=== PATIENT | female | born 1995 | race Caucasian/White ===

== ENCOUNTER 2024-04-17 20:09 | Emergency (ER) | payer OTHER ==
[~2024-04-17] VITALS: Ht 157.5 cm; Wt 73.4 kg
[2024-04-17 20:26] VITALS: BP 120/70; PULSE 65; RESP 18; TEMP 98.1; O2SAT 100
[2024-04-17] MEDS ORDERED: ONDANSETRON 4MG ODT PO ONE (21:30)
[2024-04-17 21:33] LABS: CLARITY URINE CLOUDY (CLEAR); COLOR URINE DARK YELLOW (YELLOW); GLUCOSE URINE NEGATIVE (NEGATIVE); KETONES URINE NEGATIVE (NEGATIVE); LEUKOCYTE ESTERASE URINE 1+ (NEGATIVE); NITRITE URINE NEGATIVE (NEGATIVE); OCCULT BLOOD URINE NEGATIVE (NEGATIVE); PH URINE 5.5 (4.5-8.0); PROTEIN URINE TRACE (NEGATIVE); SPECIFIC GRAVITY URINE 1.032 (1.005-1.030)
[2024-04-17 21:50] LABS: BACTERIA URINE 2+; RBC URINE 0-2 /hpf (0-2); SQUAMOUS EPITHELIAL CELL URINE 2+ /lpf (RARE/1+)
[2024-04-17 23:13] LABS: HEMATOCRIT. 37.2 % (36.0-48.0); HEMOGLOBIN. 12.7 g/dL (12.0-16.0); MEAN CORPUSCULAR HEMOGLOBIN 27.8 pg (28.0-32.0); MEAN CORPUSCULAR HGB CONC 34.2 g/dL (31.0-37.0); MEAN CORPUSCULAR VOLUME 81.4 fL (81.0-99.0); MEAN PLATELET VOLUME 7.4 fl (7.4-10.4); PLATELET 330 x1000/uL (130-400); RED BLOOD CELL COUNT 4.57 mill/uL (4.2-5.4); RED CELL DISTRIBUTION WIDTH 15.1 % (11.6-14.6); WHITE BLOOD COUNT 6.6 x1000/uL (4.5-11.0)
[2024-04-17 23:14] LABS: DIFFERENTIAL COMMENT 1
[2024-04-17 23:18] LABS: CHLORIDE 105 mEq/L (98-107); POTASSIUM 3.4 mEq/L (3.5-5.1); SODIUM 136 mEq/L (136-145)
[2024-04-17 23:19] LABS: CARBON DIOXIDE 24 mEq/L (21-32)
[2024-04-17 23:20] LABS: CALCIUM 8.6 mg/dL (8.7-10.4)
[2024-04-17 23:22] LABS: PLATELET ESTIMATE NORMAL
[2024-04-17 23:24] LABS: CREATININE 0.5 mg/dL (0.6-1.0); GLUCOSE 87 mg/dL (70-105)
[2024-04-17 23:25] LABS: UREA NITROGEN BLOOD 7 mg/dL (9-23)
[2024-04-17 23:26] LABS: ALANINE AMINOTRANSFERASE 16 IU/L (10-49); ALBUMIN 3.8 g/dL (3.2-4.8); ASPARTATE AMINOTRANSFERASE 19 IU/L (<34)
[2024-04-17 23:27] LABS: BILIRUBIN DIRECT 0.1 mg/dL (<=3.0); BILIRUBIN TOTAL 0.5 mg/dL (0.1-1.0)
[2024-04-18 00:22] LABS: B-HCG QUANTITATIVE 19896 mIU/mL (<3)
[2024-04-18] MEDS ORDERED: KEFLL21 MT (00:23)
[2024-04-18] MEDS ORDERED: ONDA-239 PO (00:23)
[2024-04-18] MEDS ORDERED: CEPH500C2 MT (00:24)
[2024-04-18] MEDS: ONDANSETRON 4MG ODT PO NR (01:30)
== END 2024-04-18 01:32 | disposition home or self-care (01) ==
LOC: ER 20:09
DX: O21.0 Mild hyperemesis gravidarum (principal); R10.2 Pelvic and perineal pain; Z3A.16 16 weeks gestation of pregnancy
CPT/HCPCS: 36415; 76805; 80048; 80076; 81003; 84702; 85025; 99284